=== PATIENT | male | born 1995 | race African-American/Black ===

== ENCOUNTER 2023-01-09 09:05 | Emergency (ER) | payer SELFPAY ==
[2023-01-09 09:43] LABS: #Eosinphils 0.2 10x3/uL (0.0-0.5); #Monocytes 0.7 10x3/uL (0.0-1.1); #Neutrophils 5.8 10x3/uL (1.5-8.4); %Basophils 0.4 % (0.0-2.0); %Eosinophils 2.4 % (0.0-6.0); %Lymphocytes 27.8 % (18.0-47.0); %Neutrophils 62.2 % (40.0-75.0); Hematocrit 51.2 % (38.8-50.0); Hemoglobin 17.2 g/dL (13.5-17.5); Mean Corpuscular HGB CONC 33.6 g/dL (32.0-36.0); Mean Corpuscular Hemoglobin 30.4 pg (27.0-33.0); Mean Corpuscular Volume 90.6 fl (81.2-95.1); Platelet Count 205 10x3/uL (150-450); RBC Distribution Width 13.3 % (11.5-14.5); Red Blood Cell (RBC) Count 5.65 10x6/uL (4.32-5.72); White Blood Cell (WBC) Count 9.3 10x3/uL (3.5-10.5)
[2023-01-09 10:01] LABS: ALT (SGPT) 18 U/L (8-55); AST (SGOT) 20 U/L (5-34); Alkaline Phosphatase 55 U/L (40-110); Anion Gap 13 mmol/L (10-20); BUN (Urea Nitrogen) 11 mg/dL (8.9-20.6); Bilirubin, Total 0.4 mg/dL (0.2-1.2); Calc. Creatinine Clearance 0 mL/min (70-130); Calcium 8.9 mg/dL (7.8-10.44); Carbon Dioxide 25 mmol/L (22-29); Chloride 105 mmol/L (98-107); Estimated GFR 122; Globulin 2.3 g/dL (2.4-3.5); Glucose 98 mg/dL (70-105); Lipase 27 U/L (8-78); Potassium 4.3 mmol/L (3.5-5.1); Protein, Total 6.3 g/dL (6.0-8.3); Sodium 139 mmol/L (136-145)
[2023-01-09] MEDS ORDERED: Ondansetron ODT 4 MG TAB ONE (10:21)
== END 2023-01-09 10:35 | disposition home or self-care (01) ==
LOC: CSHERS 09:05
DX: K52.9 Noninfective gastroenteritis and colitis, unspecified (principal)
CPT/HCPCS: 36415; 80053; 83690; 85025; 99283; Q0162

== ENCOUNTER 2023-01-15 08:05 | Emergency (ER) | payer SELFPAY ==
[2023-01-15] MEDS ORDERED: Ketorolac Tromethamine 30 MG/ML VIAL ONE (09:06)
[2023-01-15] MEDS ORDERED: Ondansetron PF 4 MG/2 ML Vial ONE (09:06)
[2023-01-15 09:39] LABS: #Eosinphils 0.2 10x3/uL (0.0-0.5); #Monocytes 0.6 10x3/uL (0.0-1.1); #Neutrophils 6.2 10x3/uL (1.5-8.4); %Basophils 0.3 % (0.0-2.0); %Eosinophils 2.1 % (0.0-6.0); %Lymphocytes 19.8 % (18.0-47.0); %Monocytes 7.1 % (0.0-10.0); %Neutrophils 70.5 % (40.0-75.0); Hematocrit 52.4 % (38.8-50.0); Hemoglobin 17.5 g/dL (13.5-17.5); Mean Corpuscular HGB CONC 33.4 g/dL (32.0-36.0); Mean Corpuscular Hemoglobin 30.2 pg (27.0-33.0); Mean Corpuscular Volume 90.5 fl (81.2-95.1); Mean Platelet Volume 11.2 fl (7.4-10.4); Platelet Count 199 10x3/uL (150-450); RBC Distribution Width 13.6 % (11.5-14.5); Red Blood Cell (RBC) Count 5.79 10x6/uL (4.32-5.72); White Blood Cell (WBC) Count 8.7 10x3/uL (3.5-10.5)
[2023-01-15 09:41] LABS: SARS-CoV-2 NAA Rapid Test Not Detected (NotDetected)
[2023-01-15 09:54] LABS: ALT (SGPT) 21 U/L (8-55); AST (SGOT) 23 U/L (5-34); Albumin 3.8 g/dL (3.5-5.0); Alkaline Phosphatase 51 U/L (40-110); Anion Gap 14 mmol/L (10-20); BUN (Urea Nitrogen) 14 mg/dL (8.9-20.6); Bilirubin, Total 0.3 mg/dL (0.2-1.2); Calc. Creatinine Clearance 0 mL/min (70-130); Calcium 8.6 mg/dL (7.8-10.44); Carbon Dioxide 21 mmol/L (22-29); Chloride 110 mmol/L (98-107); Estimated GFR 125; Globulin 2.5 g/dL (2.4-3.5); Glucose 94 mg/dL (70-105); Lipase 39 U/L (8-78); Potassium 4.3 mmol/L (3.5-5.1); Protein, Total 6.3 g/dL (6.0-8.3); Sodium 141 mmol/L (136-145)
[2023-01-15 09:58] LABS: Amphetamine Not Detected (NotDetected); Barbiturates Screen Not Detected (NotDetected); Benzodiazepine Screen Not Detected (NotDetected); Cocaine Metabolite Screen Not Detected (NotDetected); Methadone Not Detected (NotDetected); Methamphetamine Not Detected (NotDetected); Opiate Screen Not Detected (NotDetected); Oxycodone Screen Not Detected (NotDetected); Phencyclidine (PCP) Not Detected (NotDetected); THC/Cannabinoid Screen Not Detected (NotDetected); Tricyclic Screen Not Detected (NotDetected)
== END 2023-01-15 11:00 | disposition home or self-care (01) ==
LOC: CSHERS 08:05
DX: R51.9 Headache, unspecified (principal); R11.0 Nausea; F17.210 Nicotine dependence, cigarettes, uncomplicated; Z20.822 Contact with and (suspected) exposure to COVID-19
CPT/HCPCS: 80053; 80306; 83690; 83735; 85025; 96361; 96374; 96375; J1885; J2405

== ENCOUNTER 2023-01-24 09:54 | Emergency (ER) | payer SELFPAY | END 2023-01-24 10:40 | disposition home or self-care (01) | LOC: CSHERS 09:54 | DX: B34.9 Viral infection, unspecified (principal); F17.210 Nicotine dependence, cigarettes, uncomplicated | CPT/HCPCS: 99283 ==

== ENCOUNTER 2023-05-20 19:56 | Emergency (ER) | payer SELFPAY ==
[2023-05-20] MEDS ORDERED: HYDROcodone/Acetaminophen 5/325 mg Tablet ONE (21:47)
== END 2023-05-20 21:51 | disposition home or self-care (01) ==
LOC: CSHERS 19:56
DX: K02.9 Dental caries, unspecified (principal); F17.210 Nicotine dependence, cigarettes, uncomplicated
CPT/HCPCS: 99282

== ENCOUNTER 2023-05-23 15:18 | Emergency (ER) | payer SELFPAY | END 2023-05-23 16:38 | disposition left against medical advice (07) | LOC: CSHERS 15:18 | DX: Z53.21 Procedure and treatment not carried out due to patient leaving prior to being seen by health care provider (principal) ==

== ENCOUNTER 2023-05-23 20:54 | Emergency (ER) | payer SELFPAY | END 2023-05-23 22:56 | disposition home or self-care (01) | LOC: CSHERS 20:54 | DX: K08.89 Other specified disorders of teeth and supporting structures (principal); F17.210 Nicotine dependence, cigarettes, uncomplicated | CPT/HCPCS: 99282 ==

== ENCOUNTER 2025-02-24 20:42 | Emergency (ER) | payer SELFPAY | END 2025-02-24 21:47 | disposition home or self-care (01) | LOC: CSHERS 20:42 | DX: L03.032 Cellulitis of left toe (principal); B35.3 Tinea pedis; F17.210 Nicotine dependence, cigarettes, uncomplicated | CPT/HCPCS: 99283 ==